=== PATIENT | female | born 1945 | race African-American/Black ===

== ENCOUNTER 2024-10-28 08:07 | Emergency (ER) | payer OTHER ==
[2024-10-28] MEDS ORDERED: Ketorolac Tromethamine 30 MG (1 mL) VIAL ONE (09:59)
== END 2024-10-28 10:14 | disposition home or self-care (01) ==
LOC: CSHERS 08:07
DX: M25.561 Pain in right knee (principal); M25.562 Pain in left knee; M25.551 Pain in right hip; I10 Essential (primary) hypertension
CPT/HCPCS: 73502; 73564 ×2; J1885; 96372; 99283